=== PATIENT | female | born 1970 | race African-American/Black ===

== ENCOUNTER 2017-05-25 14:44 | Outpatient (CLI) | payer BC ==
--- NOTE | 2017-05-25 18:28 | ULT ---
RIGHT LOWER EXTREMITY VENOUS DUPLEX EXAM: 05/25/17 HISTORY: Right leg pain. Elevated D-dimer. Real time color doppler evaluation of the right lower extremity was performed from groin to calf. Thi s includes evaluation of common femoral, superficial and profunda femoral, saphenous, popliteal, and trifurcation veins. This shows a patent deep venous system. There is normal compressibility and augme ntation. There is no evidence of DVT. IMPRESSION: No evidence of DVT of the right lower extremity. POS: MICHAEL
== END 2017-05-25 14:45 | disposition home or self-care (01) ==
LOC: ULT 14:44
PROVIDERS: ATTEND Nurse Practitioner Family
DX: R79.89 Other specified abnormal findings of blood chemistry (principal)

== ENCOUNTER 2017-12-20 14:16 | Outpatient (CLI) | payer BC | END 2017-12-20 14:17 | disposition home or self-care (01) | LOC: BICMAMMO 14:16 | PROVIDERS: ATTEND Nurse Practitioner Family | DX: Z12.31 Encounter for screening mammogram for malignant neoplasm of breast (principal); N64.89 Other specified disorders of breast | CPT/HCPCS: 77063; 77067 ==

== ENCOUNTER 2020-10-13 19:44 | Emergency (ER) | payer BC ==
[2020-10-13] MEDS ORDERED: Ketorolac Tromethamine 30 MG/ML VIAL ONE (20:02)
[2020-10-13] MEDS ORDERED: HYDROmorphone 0.5 MG/0.5 ML SYRINGE ONE ×2 (20:02→20:30)
[2020-10-13] MEDS ORDERED: Boostrix 0.5 ML (Tdap) VIAL ONE (20:02)
== END 2020-10-13 22:18 | disposition short-term general hospital (02) ==
LOC: ERS 19:44
DX: T25.321A Burn of third degree of right foot, initial encounter (principal); T25.322A Burn of third degree of left foot, initial encounter; T23.062A Burn of unspecified degree of back of left hand, initial encounter; T23.061A Burn of unspecified degree of back of right hand, initial encounter; T31.0 Burns involving less than 10% of body surface; I10 Essential (primary) hypertension; X10.2XXA Contact with fats and cooking oils, initial encounter
CPT/HCPCS: 90471; 90715; 96374; 96375; G0390; J1170; J1885

== ENCOUNTER 2023-02-19 08:10 | Inpatient (IN) | payer BC ==
[2023-02-19 08:48] LABS: #Eosinphils 0.1 thou/uL (0.0-0.7); #Monocytes 0.4 thou/uL (0.11-0.59); #Neutrophils 3.5 thou/uL (1.40-6.50); %Basophils 0.2 % (0.0-1.0); %Eosinophils 1.8 % (0.0-10.0); %Lymphocytes 35.4 % (21.0-51.0); %Monocytes 6.2 % (0.0-10.0); %Neutrophils 56.2 % (42.0-75.0); Hematocrit 40.9 % (36.0-47.0); Hemoglobin 12.7 g/dL (12.0-16.0); Mean Corpuscular HGB CONC 31.1 g/dL (32.0-36.0); Mean Corpuscular Hemoglobin 26.5 pg (27.0-31.0); Mean Corpuscular Volume 85.2 fl (78.0-98.0); Mean Platelet Volume 11.5 fL (7.4-10.4); Platelet Count 129 10x3/uL (130-400); RBC Distribution Width 14.2 % (11.5-14.5); White Blood Cell (WBC) Count 6.3 10x3/uL (4.8-10.8)
[2023-02-19] MEDS ORDERED: Iopamidol-370 76% 500 ML MDV (1 ML CHARGE) ONE (08:57)
[2023-02-19 09:03] LABS: PTT 24.9 sec (22.9-36.1); Prothrombin Time 13.6 sec (12.0-14.7)
[2023-02-19 09:08] LABS: ALT (SGPT) 12 U/L (8-55); AST (SGOT) 15 U/L (5-34); Albumin 3.9 g/dL (3.5-5.0); Alkaline Phosphatase 83 U/L (40-110); Anion Gap 11 mmol/L (10-20); BUN (Urea Nitrogen) 12 mg/dL (9.8-20.1); Bilirubin, Total 0.5 mg/dL (0.2-1.2); Calc. Creatinine Clearance 0 mL/min (70-130); Carbon Dioxide 26 mmol/L (22-29); Chloride 104 mmol/L (98-107); Estimated GFR 80; Glucose 87 mg/dL (70-105); Magnesium 2.1 mg/dL (1.6-2.6); Potassium 3.2 mmol/L (3.5-5.1); Protein, Total 6.9 g/dL (6.0-8.3); Sodium 138 mmol/L (136-145)
[2023-02-19 09:11] LABS: Troponin I Less than 0.010 ng/mL (< 0.028)
[2023-02-19] MEDS ORDERED: Ondansetron ODT 4 MG TAB PO PRN (09:39)
[2023-02-19] MEDS ORDERED: Senokot S 8.6-50 MG TAB PO PRN (09:39)
[2023-02-19] MEDS ORDERED: Ondansetron PF 4 MG/2 ML Vial IVP PRN (09:39)
[2023-02-19] MEDS ORDERED: Bisacodyl 10 MG SUPP PR PRN (09:39)
[2023-02-19] MEDS ORDERED: Bisacodyl 5 MG TAB PO PRN (09:39)
[2023-02-19] MEDS ORDERED: Aspirin 325 MG TAB ONE (09:45)
[2023-02-19] MEDS ORDERED: Potassium Chloride 20 MEQ TAB PO SCH (10:00)
[2023-02-19 12:43] VITALS: BMI 32.1
[2023-02-19 16:52] LABS: INR-International Normal Ratio 0.9; PTT 28.5 sec (22.9-36.1); Prothrombin Time 12.9 sec (12.0-14.7)
[2023-02-19 16:53] LABS: D-Dimer Test 0.36 *mcg/mL (0.27-0.43)
[2023-02-19] MEDS: Acetaminophen 325 MG TAB PO PRN (20:35)
[2023-02-19] MEDS: Atorvastatin Calcium 40 MG TAB PO SCH (20:35)
[2023-02-20 08:09] LABS: #Eosinphils 0.2 thou/uL (0.0-0.7); #Monocytes 0.5 thou/uL (0.11-0.59); #Neutrophils 4.4 thou/uL (1.40-6.50); %Basophils 0.3 % (0.0-1.0); %Eosinophils 2.1 % (0.0-10.0); %Lymphocytes 29.4 % (21.0-51.0); %Monocytes 6.6 % (0.0-10.0); %Neutrophils 61.3 % (42.0-75.0); Hemoglobin 14.3 g/dL (12.0-16.0); Mean Corpuscular HGB CONC 31.1 g/dL (32.0-36.0); Mean Corpuscular Hemoglobin 26.2 pg (27.0-31.0); Mean Corpuscular Volume 84.2 fl (78.0-98.0); Mean Platelet Volume 11.9 fL (7.4-10.4); Platelet Count 155 10x3/uL (130-400); RBC Distribution Width 14.5 % (11.5-14.5); Red Blood Cell (RBC) Count 5.46 mill/uL (4.20-5.40); White Blood Cell (WBC) Count 7.1 10x3/uL (4.8-10.8)
[2023-02-20 08:21] LABS: Hemoglobin A1c 5.4 % (4.0-6.0)
[2023-02-20 08:38] LABS: ALT (SGPT) 12 U/L (8-55); AST (SGOT) 18 U/L (5-34); Albumin 3.9 g/dL (3.5-5.0); Alkaline Phosphatase 90 U/L (40-110); Bilirubin, Direct 0.1 mg/dL (0.1-0.3); Bilirubin, Total 0.5 mg/dL (0.2-1.2); Protein, Total 7.3 g/dL (6.0-8.3)
[2023-02-20 08:39] LABS: Anion Gap 13 mmol/L (10-20); BUN (Urea Nitrogen) 16 mg/dL (9.8-20.1); Calc. Creatinine Clearance 95 mL/min (70-130); Calcium 9.1 mg/dL (7.8-10.44); Carbon Dioxide 26 mmol/L (22-29); Cardiac Risk 6.3 (Less than 4.5); Chloride 105 mmol/L (98-107); Cholesterol 239 mg/dl (< 200 Desired); Estimated GFR 77; Glucose 101 mg/dL (70-105); HDL Cholesterol 38 mg/dL (>60 Neg Risk); LDL Cholesterol, Calculated 173 mg/dL; Potassium 3.7 mmol/L (3.5-5.1); Sodium 140 mmol/L (136-145); Triglycerides 141 mg/dL (Less than 150)
[2023-02-20] MEDS: Amlodipine 10 MG TAB PO SCH (09:28)
[2023-02-20] MEDS: Aspirin 81 mg Enteric Coated Tablet PO SCH (09:28)
[2023-02-20] MEDS: Hydrochlorothiazide 25 MG TAB PO SCH (09:29)
[2023-02-20] MEDS: Lisinopril 20 MG TAB PO SCH (09:29)
[2023-02-20] MEDS ORDERED: hydrALAZINE 20 MG/ML VIAL SLOW IVP PRN (09:55)
[2023-02-20] MEDS ORDERED: Lidocaine 1% PF 5 ML VIAL ONE (11:19)
[2023-02-20] MEDS ORDERED: hydrALAZINE 20 MG/ML VIAL ONE (11:53)
[2023-02-20] MEDS: Acetaminophen 325 MG TAB PO PRN (17:33)
[2023-02-20 19:03] LABS: Amphetamine Not Detected (NotDetected); Barbiturates Screen Not Detected (NotDetected); Benzodiazepine Screen Not Detected (NotDetected); Cocaine Metabolite Screen Not Detected (NotDetected); Methadone Not Detected (NotDetected); Methamphetamine Not Detected (NotDetected); Opiate Screen Not Detected (NotDetected); Oxycodone Screen Not Detected (NotDetected); Phencyclidine (PCP) Not Detected (NotDetected); THC/Cannabinoid Screen Not Detected (NotDetected); Tricyclic Screen Not Detected (NotDetected)
[2023-02-20] MEDS: Atorvastatin Calcium 40 MG TAB PO SCH (20:49)
[2023-02-21 05:52] LABS: #Eosinphils 0.2 thou/uL (0.0-0.7); #Monocytes 0.8 thou/uL (0.11-0.59); #Neutrophils 6.6 thou/uL (1.40-6.50); %Basophils 0.3 % (0.0-1.0); %Eosinophils 1.7 % (0.0-10.0); %Lymphocytes 24.6 % (21.0-51.0); %Monocytes 7.8 % (0.0-10.0); %Neutrophils 65.4 % (42.0-75.0); Hematocrit 43.6 % (36.0-47.0); Hemoglobin 13.6 g/dL (12.0-16.0); Mean Corpuscular HGB CONC 31.2 g/dL (32.0-36.0); Mean Corpuscular Hemoglobin 26.3 pg (27.0-31.0); Mean Corpuscular Volume 84.3 fl (78.0-98.0); Mean Platelet Volume 11.6 fL (7.4-10.4); RBC Distribution Width 14.5 % (11.5-14.5); Red Blood Cell (RBC) Count 5.17 mill/uL (4.20-5.40); White Blood Cell (WBC) Count 10.1 10x3/uL (4.8-10.8)
[2023-02-21 06:08] LABS: Platelet Count 298 10x3/uL (130-400)
[2023-02-21 06:20] LABS: Anion Gap 14 mmol/L (10-20); BUN (Urea Nitrogen) 19 mg/dL (9.8-20.1); Calc. Creatinine Clearance 86 mL/min (70-130); Calcium 9.3 mg/dL (7.8-10.44); Carbon Dioxide 25 mmol/L (22-29); Chloride 107 mmol/L (98-107); Estimated GFR 69; Glucose 106 mg/dL (70-105); Potassium 3.7 mmol/L (3.5-5.1); Sodium 142 mmol/L (136-145)
[2023-02-21] MEDS: Lisinopril 20 MG TAB PO SCH (09:10)
[2023-02-21] MEDS: Amlodipine 10 MG TAB PO SCH (09:10)
[2023-02-21] MEDS: Aspirin 81 mg Enteric Coated Tablet PO SCH (09:11)
[2023-02-21] MEDS: Hydrochlorothiazide 25 MG TAB PO SCH (09:11)
[2023-02-21] MEDS ORDERED: Carvedilol 6.25 MG TAB PO SCH ×2 (09:24→09:30)
[2023-02-21] MEDS ORDERED: Clopidogrel Bisulfate 75 MG TAB PO SCH (11:45)
[2023-02-21 12:31] LABS: Cardiolipin IgG Ab 2.9 GPL-U/mL (<10 Negative); EliA APS New Method **** NEW METHOD ****
[2023-02-21 14:45] LABS: HEX PHOS LA Tube 1 41.6 SEC; HEX PHOS LA Tube 2 40.1 SEC; Hexagonal Phospholipid Neut 1.5 SEC (0-8.0)
[2023-02-21] MEDS: Carvedilol 6.25 MG TAB PO SCH (16:53)
[2023-02-21] MEDS: Atorvastatin Calcium 40 MG TAB PO SCH (20:29)
[2023-02-22 05:59] LABS: #Eosinphils 0.2 thou/uL (0.0-0.7); #Monocytes 0.6 thou/uL (0.11-0.59); #Neutrophils 6.4 thou/uL (1.40-6.50); %Basophils 0.3 % (0.0-1.0); %Eosinophils 2.1 % (0.0-10.0); %Lymphocytes 26.6 % (21.0-51.0); %Monocytes 6.2 % (0.0-10.0); %Neutrophils 64.6 % (42.0-75.0); Hematocrit 42.1 % (36.0-47.0); Hemoglobin 13.5 g/dL (12.0-16.0); Mean Corpuscular HGB CONC 32.1 g/dL (32.0-36.0); Mean Corpuscular Hemoglobin 26.5 pg (27.0-31.0); Mean Corpuscular Volume 82.5 fl (78.0-98.0); Mean Platelet Volume 11.3 fL (7.4-10.4); Platelet Count 257 10x3/uL (130-400); RBC Distribution Width 14.5 % (11.5-14.5); White Blood Cell (WBC) Count 9.9 10x3/uL (4.8-10.8)
[2023-02-22 06:25] LABS: Anion Gap 13 mmol/L (10-20); BUN (Urea Nitrogen) 19 mg/dL (9.8-20.1); Calc. Creatinine Clearance 99 mL/min (70-130); Calcium 9.1 mg/dL (7.8-10.44); Carbon Dioxide 26 mmol/L (22-29); Chloride 104 mmol/L (98-107); Estimated GFR 82; Glucose 100 mg/dL (70-105); Magnesium 1.9 mg/dL (1.6-2.6); Potassium 3.5 mmol/L (3.5-5.1); Sodium 139 mmol/L (136-145)
[2023-02-22] MEDS: Aspirin 81 mg Enteric Coated Tablet PO SCH (09:34)
[2023-02-22] MEDS: Lisinopril 20 MG TAB PO SCH (09:34)
[2023-02-22] MEDS: Amlodipine 10 MG TAB PO SCH (09:34)
[2023-02-22] MEDS: Clopidogrel Bisulfate 75 MG TAB PO SCH (09:35)
[2023-02-22] MEDS: Hydrochlorothiazide 25 MG TAB PO SCH (09:35)
[2023-02-22] MEDS: Carvedilol 6.25 MG TAB PO SCH ×2 (09:35→17:32)
[2023-02-22] MEDS ORDERED: Potassium Chloride 20 MEQ TAB PO SCH (12:00)
[2023-02-22] MEDS ORDERED: Magnesium Oxide 400 MG TAB PO SCH (12:00)
[2023-02-22] MEDS ORDERED: Labetalol HCl 100 MG/20 ML VIAL SLOW IVP PRN (14:59)
[2023-02-22] MEDS: Acetaminophen 325 MG TAB PO PRN (20:11)
[2023-02-22] MEDS: Atorvastatin Calcium 40 MG TAB PO SCH (20:12)
[2023-02-23 04:50] LABS: #Eosinphils 0.2 thou/uL (0.0-0.7); #Monocytes 0.7 thou/uL (0.11-0.59); #Neutrophils 7.4 thou/uL (1.40-6.50); %Basophils 0.3 % (0.0-1.0); %Eosinophils 1.6 % (0.0-10.0); %Lymphocytes 20.8 % (21.0-51.0); %Monocytes 6.6 % (0.0-10.0); %Neutrophils 70.5 % (42.0-75.0); Hematocrit 42.9 % (36.0-47.0); Hemoglobin 13.8 g/dL (12.0-16.0); Mean Corpuscular HGB CONC 32.2 g/dL (32.0-36.0); Mean Corpuscular Hemoglobin 26.4 pg (27.0-31.0); Mean Platelet Volume 11.1 fL (7.4-10.4); Platelet Count 290 10x3/uL (130-400); RBC Distribution Width 14.6 % (11.5-14.5); Red Blood Cell (RBC) Count 5.23 mill/uL (4.20-5.40); White Blood Cell (WBC) Count 10.4 10x3/uL (4.8-10.8)
[2023-02-23 05:22] LABS: Anion Gap 14 mmol/L (10-20); BUN (Urea Nitrogen) 20 mg/dL (9.8-20.1); Calc. Creatinine Clearance 82 mL/min (70-130); Calcium 9.4 mg/dL (7.8-10.44); Carbon Dioxide 24 mmol/L (22-29); Chloride 106 mmol/L (98-107); Estimated GFR 65; Glucose 106 mg/dL (70-105); Magnesium 2.1 mg/dL (1.6-2.6); Potassium 3.7 mmol/L (3.5-5.1); Sodium 140 mmol/L (136-145)
[2023-02-23] MEDS: Carvedilol 6.25 MG TAB PO SCH ×2 (08:53→17:47)
[2023-02-23] MEDS: Lisinopril 20 MG TAB PO SCH (08:54)
[2023-02-23] MEDS: Hydrochlorothiazide 25 MG TAB PO SCH (08:55)
[2023-02-23] MEDS: Amlodipine 10 MG TAB PO SCH (08:55)
[2023-02-23] MEDS: Clopidogrel Bisulfate 75 MG TAB PO SCH (08:57)
[2023-02-23] MEDS ORDERED: Magnesium Oxide 400 MG TAB PO SCH (09:00)
[2023-02-23] MEDS ORDERED: Aspirin Chewable 81 MG TAB PO SCH (09:00)
[2023-02-23 16:04] VITALS: BP 166/71; TEMP 98.1
[2023-02-23] MEDS: Atorvastatin Calcium 40 MG TAB PO SCH (19:52)
== END 2023-02-23 20:17 | DRG 65 ==
LOC: ERS 08:10 → SUATTDRO 08:10 → ERHOLD 09:46 → 2SE 11:44 → OBSVTOIN 02-20 10:54
PROVIDERS: ADMIT Family Medicine; ATTEND Internal Medicine
PROC: B24BZZ4 Ultrasonography of Heart with Aorta, Transesophageal (ICD-10-PCS; principal; 2023-02-20)
DX: I63.9 Cerebral infarction, unspecified (principal); G81.94 Hemiplegia, unspecified affecting left nondominant side; R20.2 Paresthesia of skin; I10 Essential (primary) hypertension; R29.700 NIHSS score 0; Z79.899 Other long term (current) drug therapy; E87.6 Hypokalemia; E78.00 Pure hypercholesterolemia, unspecified
CPT/HCPCS: 0042T; 36415; 36416; 70450; 70496; 70498; 70551; 71045; 80048; 80053; 80061; 80076; 80306; 83036; 83090; 83735; 84443; 84484; 85025; 85300; 85303; 85305; 85307; 85379; 85598; 85610; 85730; 86147; 93005; 93312; J0360; Q0162; Q9967

== ENCOUNTER 2023-03-13 05:44 | Emergency (ER) | payer BC ==
[2023-03-13 06:19] LABS: #Eosinphils 0.3 thou/uL (0.0-0.7); #Monocytes 0.6 thou/uL (0.11-0.59); #Neutrophils 6.3 thou/uL (1.40-6.50); %Basophils 0.4 % (0.0-1.0); %Eosinophils 3.1 % (0.0-10.0); %Lymphocytes 23.6 % (21.0-51.0); %Monocytes 6.3 % (0.0-10.0); %Neutrophils 66.4 % (42.0-75.0); Hematocrit 41.8 % (36.0-47.0); Hemoglobin 13.2 g/dL (12.0-16.0); Mean Corpuscular HGB CONC 31.6 g/dL (32.0-36.0); Mean Corpuscular Hemoglobin 26.9 pg (27.0-31.0); Mean Corpuscular Volume 85.1 fl (78.0-98.0); Mean Platelet Volume 10.7 fL (7.4-10.4); Platelet Count 279 10x3/uL (130-400); RBC Distribution Width 14.3 % (11.5-14.5); Red Blood Cell (RBC) Count 4.91 mill/uL (4.20-5.40); White Blood Cell (WBC) Count 9.5 10x3/uL (4.8-10.8)
[2023-03-13 06:50] LABS: ALT (SGPT) 41 U/L (8-55); AST (SGOT) 18 U/L (5-34); Albumin 4.3 g/dL (3.5-5.0); Alkaline Phosphatase 92 U/L (40-110); Anion Gap 15 mmol/L (10-20); BUN (Urea Nitrogen) 15 mg/dL (9.8-20.1); Bilirubin, Total 0.5 mg/dL (0.2-1.2); CK (CPK) 149 U/L (29-168); Calc. Creatinine Clearance 0 mL/min (70-130); Calcium 9.5 mg/dL (7.8-10.44); Carbon Dioxide 23 mmol/L (22-29); Chloride 108 mmol/L (98-107); Estimated GFR 89; Glucose 103 mg/dL (70-105); Potassium 4.2 mmol/L (3.5-5.1); Protein, Total 7.3 g/dL (6.0-8.3); Sodium 142 mmol/L (136-145)
[2023-03-13 06:51] LABS: Troponin I Less than 0.010 ng/mL (< 0.028)
[2023-03-13] MEDS ORDERED: Aspirin 325 MG TAB ONE (07:08)
== END 2023-03-13 07:40 | disposition home or self-care (01) ==
LOC: ERS 05:44
DX: M79.601 Pain in right arm (principal); M79.604 Pain in right leg
CPT/HCPCS: 36415; 36416; 70450; 80053; 82550; 84484; 85025; 93005

== ENCOUNTER 2023-07-10 14:39 | Outpatient (CLI) | payer BC | END 2023-07-10 14:40 | disposition home or self-care (01) | LOC: MRI 14:39 | PROVIDERS: ATTEND Surgery | DX: M43.06 Spondylolysis, lumbar region (principal); M51.36 Other intervertebral disc degeneration, lumbar region; M47.816 Spondylosis without myelopathy or radiculopathy, lumbar region; M46.06 Spinal enthesopathy, lumbar region | CPT/HCPCS: 72148 ==